=== PATIENT | male | born 1975 | race Caucasian/White ===

== ENCOUNTER → 2021-06-25 | Outpatient (CLI) | payer MEDICARE, OTHER | LOC: EMI 13:44 | DX: M47.22 Other spondylosis with radiculopathy, cervical region (principal); Z98.1 Arthrodesis status; M50.11 Cervical disc disorder with radiculopathy, high cervical region; M47.23 Other spondylosis with radiculopathy, cervicothoracic region; M48.02 Spinal stenosis, cervical region; M25.78 Osteophyte, vertebrae; M48.03 Spinal stenosis, cervicothoracic region | CPT/HCPCS: 72156; A9577 ==

== ENCOUNTER → 2021-07-28 | Outpatient (CLI) | payer MEDICARE, OTHER ==
[~2021-07-28] MED LIST: GLIMEPIRIDE4 MG PO; HYDROCHLOROTHIA25 MG PO; LISINOPRIL20 MG PO; TESTOSTERO200 MG/1 M SQ; TIZANIDINE HCL4 MG PO
[2021-07-28 10:01] LABS: HEMOGLOBIN 15.7 gm/dl (14.0-17.5); RED BLOOD COUNT 5.53 M/UL (4.20-5.50); WHITE BLOOD COUNT 10.9 K/UL (4.5-11.0)
[2021-07-28 10:22] LABS: BUN/CREATININE RATIO 17 (0-10)
== END ==
LOC: EDSTATUS 09:00 → OPSV2 09:00
PROVIDERS: Orthopaedic Surgery
DX: Z01.818 Encounter for other preprocedural examination (principal); M54.12 Radiculopathy, cervical region
CPT/HCPCS: 36415; 71046; 80048; 81001; 83036; 85025; 87081; 93005

== ENCOUNTER → 2021-08-09 | Outpatient (CLI) | payer MEDICARE, OTHER ==
[~2021-08-09] MED LIST changes: +DOCUSATE SODIU100 MG PO; +OMEPRAZOLE40 MG PO; +VITAMIN D21250 MCG PO
[2021-08-09 12:48] LABS: BUN/CREATININE RATIO 15 (0-10)
== END ==
LOC: LAB 11:57
PROVIDERS: Orthopaedic Surgery
DX: Z01.812 Encounter for preprocedural laboratory examination (principal); M54.12 Radiculopathy, cervical region
CPT/HCPCS: 80048; 85610; 85730; 86850; 86900; 86901

== ENCOUNTER 2021-08-10 05:28 | Inpatient (IN) | payer MEDICARE, OTHER ==
[~2021-08-10] VITALS: Ht 172.7 cm; Wt 105.7 kg
[~2021-08-10 05:28] MED LIST changes: -DOCUSATE SODIU100 MG PO; -GLIMEPIRIDE4 MG PO; -OMEPRAZOLE40 MG PO; -TIZANIDINE HCL4 MG PO; -VITAMIN D21250 MCG PO
[2021-08-10 17:09] LABS: HEMOGLOBIN 13.8 gm/dl (14.0-17.5); RED BLOOD COUNT 4.87 M/UL (4.20-5.50); WHITE BLOOD COUNT 19.2 K/UL (4.5-11.0)
[2021-08-10 17:34] LABS: BUN/CREATININE RATIO 17 (0-10)
[2021-08-10] MEDS ORDERED: VITAMIN D21250 MCG PO (17:59)
[2021-08-11 05:24] LABS: HEMOGLOBIN 12.3 gm/dl (14.0-17.5); WHITE BLOOD COUNT 15.9 K/UL (4.5-11.0)
[2021-08-11 05:25] LABS: RED BLOOD COUNT 4.36 M/UL (4.20-5.50)
[2021-08-11 06:16] LABS: BUN/CREATININE RATIO 15 (0-10)
[2021-08-11] MEDS ORDERED: OMEPRAZOLE40 MG PO (10:21)
[2021-08-11] MEDS ORDERED: DOCUSATE SODIU100 MG PO (10:23)
[2021-08-11] MEDS ORDERED: TIZANIDINE HCL4 MG PO (10:59)
[2021-08-12 05:49] LABS: HEMOGLOBIN 10.9 gm/dl (14.0-17.5); RED BLOOD COUNT 3.9 M/UL (4.20-5.50); WHITE BLOOD COUNT 14.1 K/UL (4.5-11.0)
[2021-08-12 06:17] LABS: BUN/CREATININE RATIO 16 (0-10)
[2021-08-13 06:50] LABS: BUN/CREATININE RATIO 12 (0-10)
[2021-08-13 07:10] LABS: HEMOGLOBIN 10.4 gm/dl (14.0-17.5); RED BLOOD COUNT 3.73 M/UL (4.20-5.50); WHITE BLOOD COUNT 12.4 K/UL (4.5-11.0)
[2021-08-14 06:24] LABS: HEMOGLOBIN 10.6 gm/dl (14.0-17.5); RED BLOOD COUNT 3.7 M/UL (4.20-5.50); WHITE BLOOD COUNT 12.5 K/UL (4.5-11.0)
[2021-08-14 06:55] LABS: BUN/CREATININE RATIO 11 (0-10)
--- NOTE | 2021-08-14 13:54 | NUR ---
NEW VERBAL ORDERS RECIEVED AND ENTERED FROM .
[2021-08-15 02:23] LABS: HEMOGLOBIN 10.3 gm/dl (14.0-17.5); RED BLOOD COUNT 3.54 M/UL (4.20-5.50); WHITE BLOOD COUNT 13.3 K/UL (4.5-11.0)
[2021-08-15 02:51] LABS: BUN/CREATININE RATIO 14 (0-10)
[2021-08-16 03:48] LABS: HEMOGLOBIN 10.9 gm/dl (14.0-17.5); RED BLOOD COUNT 3.84 M/UL (4.20-5.50); WHITE BLOOD COUNT 12.9 K/UL (4.5-11.0)
[2021-08-16 04:16] LABS: BUN/CREATININE RATIO 10 (0-10)
[2021-08-17 03:29] LABS: HEMOGLOBIN 10.7 gm/dl (14.0-17.5); RED BLOOD COUNT 3.83 M/UL (4.20-5.50); WHITE BLOOD COUNT 11.9 K/UL (4.5-11.0)
[2021-08-17 03:33] LABS: BUN/CREATININE RATIO 12 (0-10)
[2021-08-18 07:14] LABS: RED BLOOD COUNT 4.01 M/UL (4.20-5.50); WHITE BLOOD COUNT 11.7 K/UL (4.5-11.0)
[2021-08-18 07:27] LABS: BUN/CREATININE RATIO 14 (0-10)
[2021-08-19 03:24] LABS: HEMOGLOBIN 12.1 gm/dl (14.0-17.5); RED BLOOD COUNT 4.33 M/UL (4.20-5.50); WHITE BLOOD COUNT 12.8 K/UL (4.5-11.0)
[2021-08-19 04:45] LABS: BUN/CREATININE RATIO 15 (0-10)
== END 2021-08-19 13:10 | disposition home or self-care (01) | DRG 460 ==
LOC: OR 05:28 → CCU 17:38 → M/S 08-12 15:10
PROVIDERS: Internal Medicine; Internal Medicine Infectious Disease; ADMIT Orthopaedic Surgery
PROC: 0QB33ZZ Excision of Left Pelvic Bone, Percutaneous Approach (ICD-10-PCS; 2021-08-10)
PROC: 0QB23ZZ Excision of Right Pelvic Bone, Percutaneous Approach (ICD-10-PCS; 2021-08-10)
PROC: 0PP304Z Removal of Internal Fixation Device from Cervical Vertebra, Open Approach (ICD-10-PCS; 2021-08-10)
PROC: 07DR3ZZ Extraction of Iliac Bone Marrow, Percutaneous Approach (ICD-10-PCS; 2021-08-10)
PROC: 4A11X4G Monitoring of Peripheral Nervous Electrical Activity, Intraoperative, External Approach (ICD-10-PCS; 2021-08-10)
PROC: 0RG707J Fusion of 2 to 7 Thoracic Vertebral Joints with Autologous Tissue Substitute, Posterior Approach, Anterior Column, Open Approach (ICD-10-PCS; principal; 2021-08-10 07:30)
PROC: 0RG407J Fusion of Cervicothoracic Vertebral Joint with Autologous Tissue Substitute, Posterior Approach, Anterior Column, Open Approach (ICD-10-PCS; 2021-08-10 07:30)
DX: M84.48XA Pathological fracture, other site, initial encounter for fracture (principal); J98.11 Atelectasis; Z20.822 Contact with and (suspected) exposure to COVID-19; M54.12 Radiculopathy, cervical region; X58.XXXA Exposure to other specified factors, initial encounter; S01.00XA Unspecified open wound of scalp, initial encounter; I10 Essential (primary) hypertension; E66.9 Obesity, unspecified; E11.40 Type 2 diabetes mellitus with diabetic neuropathy, unspecified; G47.33 Obstructive sleep apnea (adult) (pediatric); E78.5 Hyperlipidemia, unspecified; R50.82 Postprocedural fever; M79.89 Other specified soft tissue disorders; R00.0 Tachycardia, unspecified; Z79.4 Long term (current) use of insulin; Z90.49 Acquired absence of other specified parts of digestive tract; Z98.818 Other dental procedure status; Z88.8 Allergy status to other drugs, medicaments and biological substances; Z68.35 Body mass index [BMI] 35.0-35.9, adult
CPT/HCPCS: 36415; 71045; 71250; 72040; 76000; 80048; 80053; 80202; 81001; 82962; 83605; 85025; 85027; 85610; 85652; 85730; 86140; 86850; 86900; 86901; 87040; 93005; 97116; 97116-GP-CQ; 97162; 97166; 97535; C1713; C1762; J0690; J1100; J1170; J2001; J2185; J2250; J2370; J2704; J2930; J3010; J3370; J7030; J7040; J7070; J7120

== ENCOUNTER 2021-08-10 13:10 | Inpatient (IN) | payer MEDICARE, OTHER ==
[~2021-08-10] VITALS: Ht 165.1 cm; Wt 104.3 kg
[2021-08-10] MEDS ORDERED: VITAMIN D21250 MCG PO (17:59)
[2021-08-11] MEDS ORDERED: OMEPRAZOLE40 MG PO (10:21)
[2021-08-11] MEDS ORDERED: DOCUSATE SODIU100 MG PO (10:23)
[2021-08-11] MEDS ORDERED: TIZANIDINE HCL4 MG PO (10:59)
[2021-08-21] MEDS ORDERED: GLIMEPIRIDE4 MG PO (10:57)
[2021-08-21] MEDS ORDERED: CEPHALEXIN500 MG PO (16:35)
[2021-08-21] MEDS ORDERED: ROXICODONE TAB 55 MG PO (16:36)
[2021-08-22 06:16] LABS: HEMOGLOBIN 10.3 gm/dl (14.0-17.5); RED BLOOD COUNT 3.68 M/UL (4.20-5.50); WHITE BLOOD COUNT 8.8 K/UL (4.5-11.0)
[2021-08-22 06:51] LABS: BUN/CREATININE RATIO 17 (0-10)
[2021-08-23 05:05] LABS: HEMOGLOBIN 9.8 gm/dl (14.0-17.5); RED BLOOD COUNT 3.56 M/UL (4.20-5.50); WHITE BLOOD COUNT 9.4 K/UL (4.5-11.0)
[2021-08-23 05:30] LABS: BUN/CREATININE RATIO 12 (0-10)
[2021-08-24 06:03] LABS: HEMOGLOBIN 10.5 gm/dl (14.0-17.5); RED BLOOD COUNT 3.79 M/UL (4.20-5.50); WHITE BLOOD COUNT 9.4 K/UL (4.5-11.0)
[2021-08-24 06:33] LABS: BUN/CREATININE RATIO 11 (0-10)
[2021-08-24 19:12] LABS: RED BLOOD COUNT 3.97 M/UL (4.20-5.50); WHITE BLOOD COUNT 10.4 K/UL (4.5-11.0)
[2021-08-24 19:25] LABS: BUN/CREATININE RATIO 9 (0-10)
[2021-08-25 06:08] LABS: HEMOGLOBIN 11.1 gm/dl (14.0-17.5); RED BLOOD COUNT 4.02 M/UL (4.20-5.50); WHITE BLOOD COUNT 9.3 K/UL (4.5-11.0)
[2021-08-25 06:41] LABS: BUN/CREATININE RATIO 13 (0-10)
[2021-08-26 09:36] LABS: HEMOGLOBIN 10.2 gm/dl (14.0-17.5); RED BLOOD COUNT 3.66 M/UL (4.20-5.50); WHITE BLOOD COUNT 10.3 K/UL (4.5-11.0)
[2021-08-26 09:48] LABS: BUN/CREATININE RATIO 16 (0-10)
--- NOTE | 2021-08-26 19:32 | NUR ---
PT PULLED ON HEMOVAC LINES AND SNAPPED TUBING. NOTIFIED DR BOYKIN AND RECIEVED ORDERS. WILL CONTINUE TO MONITOR.
[2021-08-27 07:17] LABS: BUN/CREATININE RATIO 14 (0-10)
== END 2021-08-27 19:43 | disposition home or self-care (01) | DRG 459 ==
LOC: UNDOADMIN 13:10 → CDU 13:10 → UNDOADMIN 08-21 16:00 → MED SURG 4 08-21 16:00 → CDU 08-27 19:43
PROVIDERS: Internal Medicine; Orthopaedic Surgery; Physician Assistant Medical; ADMIT Internal Medicine
PROC: 0RG707J Fusion of 2 to 7 Thoracic Vertebral Joints with Autologous Tissue Substitute, Posterior Approach, Anterior Column, Open Approach (ICD-10-PCS; 2021-08-10)
PROC: 0RG407J Fusion of Cervicothoracic Vertebral Joint with Autologous Tissue Substitute, Posterior Approach, Anterior Column, Open Approach (ICD-10-PCS; 2021-08-10)
PROC: 4A11X4G Monitoring of Peripheral Nervous Electrical Activity, Intraoperative, External Approach (ICD-10-PCS; 2021-08-10)
PROC: 0PP304Z Removal of Internal Fixation Device from Cervical Vertebra, Open Approach (ICD-10-PCS; 2021-08-10)
PROC: 0QB23ZZ Excision of Right Pelvic Bone, Percutaneous Approach (ICD-10-PCS; 2021-08-10)
PROC: 07DR3ZZ Extraction of Iliac Bone Marrow, Percutaneous Approach (ICD-10-PCS; 2021-08-10)
PROC: 0QB33ZZ Excision of Left Pelvic Bone, Percutaneous Approach (ICD-10-PCS; 2021-08-10)
PROC: 3E03329 Introduction of Other Anti-infective into Peripheral Vein, Percutaneous Approach (ICD-10-PCS; 2021-08-21)
PROC: 0RP104Z Removal of Internal Fixation Device from Cervical Vertebral Joint, Open Approach (ICD-10-PCS; principal; 2021-08-24 16:00)
PROC: 0KB30ZZ Excision of Left Neck Muscle, Open Approach (ICD-10-PCS; principal; 2021-08-24 16:00)
DX: M84.48XA Pathological fracture, other site, initial encounter for fracture (principal); A41.9 Sepsis, unspecified organism; T81.41XA Infection following a procedure, superficial incisional surgical site, initial encounter; L76.34 Postprocedural seroma of skin and subcutaneous tissue following other procedure; E87.1 Hypo-osmolality and hyponatremia; M96.0 Pseudarthrosis after fusion or arthrodesis; J98.11 Atelectasis; Y83.8 Other surgical procedures as the cause of abnormal reaction of the patient, or of later complication, without mention of misadventure at the time of the procedure; Z20.822 Contact with and (suspected) exposure to COVID-19; I10 Essential (primary) hypertension; E78.5 Hyperlipidemia, unspecified; G47.33 Obstructive sleep apnea (adult) (pediatric); E66.9 Obesity, unspecified; E11.40 Type 2 diabetes mellitus with diabetic neuropathy, unspecified; R32 Unspecified urinary incontinence; K75.9 Inflammatory liver disease, unspecified; Z90.49 Acquired absence of other specified parts of digestive tract; Z98.890 Other specified postprocedural states; Z88.1 Allergy status to other antibiotic agents; Z68.35 Body mass index [BMI] 35.0-35.9, adult; M54.12 Radiculopathy, cervical region; X58.XXXA Exposure to other specified factors, initial encounter; S01.00XA Unspecified open wound of scalp, initial encounter; M79.89 Other specified soft tissue disorders; R00.0 Tachycardia, unspecified; Z79.4 Long term (current) use of insulin; Z98.818 Other dental procedure status; Z88.8 Allergy status to other drugs, medicaments and biological substances
CPT/HCPCS: 36415; 71045; 71250; 72020; 72040; 72156; 76000; 80048; 80053; 80202; 81001; 82962; 83605; 83735; 85025; 85027; 85610; 85652; 85730; 86140; 86850; 86900; 86901; 87040; 87070; 87086; 87205; 93005; 97110; 97116; 97116-GP-CQ; 97161; 97162; 97165; 97166; 97535; A9577; C1713; C1751; C1762; C9113; G0378; J0690; J0692; J0878; J1040; J1100; J1170; J1650; J2001; J2185; J2250; J2370; J2543; J2704; J2930; J3010; J3260; J3370; J7030; J7040; J7070; J7120; U0002

== ENCOUNTER → 2021-10-21 | Outpatient (CLI) | payer MEDICARE, OTHER ==
[~2021-10-21] MED LIST changes: +CEPHALEXIN500 MG PO; +DOCUSATE SODIU100 MG PO; +GLIMEPIRIDE4 MG PO; +OMEPRAZOLE40 MG PO; +ROXICODONE TAB 55 MG PO; +TIZANIDINE HCL4 MG PO; +VITAMIN D21250 MCG PO
== END ==
LOC: OPSV 13:00
DX: M46.42 Discitis, unspecified, cervical region (principal)
CPT/HCPCS: G0463